=== PATIENT | female | born 1965 | race Caucasian/White ===

== ENCOUNTER 2018-03-02 11:14 | Emergency (ER) | payer MEDICAID ==
[~2018-03-02] VITALS: Ht 160 cm; Wt 52.0 kg
[2018-03-02 11:16] VITALS: BP 101/63
[2018-03-02] MEDS ORDERED: CLOT12CR TOP (14:12)
[2018-03-02] MEDS ORDERED: PIP1KIT21 TP (14:12)
[2018-03-02] MEDS ORDERED: PERM60CR19 TP (14:12)
== END 2018-03-02 14:31 | disposition home or self-care (01) ==
LOC: ER 11:15
DX: B85.0 Pediculosis due to Pediculus humanus capitis (principal); B35.3 Tinea pedis; F17.200 Nicotine dependence, unspecified, uncomplicated; Z88.0 Allergy status to penicillin; Z79.899 Other long term (current) drug therapy; Z59.0 Homelessness
CPT/HCPCS: 99282

== ENCOUNTER 2018-03-15 18:42 | Emergency (ER) | payer MEDICAID ==
[~2018-03-15] VITALS: Ht 160 cm; Wt 50.0 kg
[~2018-03-15 18:42] MED LIST: CLOT12CR TOP; IBUP-1986 PO; PERM60CR19 TP; PIP1KIT21 TP; TRAM50TA2 PO
[2018-03-15 19:12] LABS: BASOPHILS % (AUTO) 0.6 % (0-1); EOSINOPHILS # (AUTO) 0.3 X10'3 (0-0.9); EOSINOPHILS % (AUTO) 3.9 % (0-6); HEMATOCRIT 36.8 % (35.0-45.0); HEMOGLOBIN 12.5 g/dl (12.0-16.0); LYMPHOCYTES # (AUTO) 2.2 X10'3 (1.1-4.8); LYMPHOCYTES % (AUTO) 29.4 % (21-51); MEAN CORPUSCULAR HEMOGLOBIN 30.7 PG (27.0-31.0); MEAN CORPUSCULAR HGB CONC 33.8 % (33.0-36.5); MEAN CORPUSCULAR VOLUME 90.7 FL (78-98); MEAN PLATELET VOLUME 9.6 FL (7.4-10.4); MONOCYTES # (AUTO) 0.5 X10'3 (0-0.9); MONOCYTES % (AUTO) 7.4 % (2-12); NEUTROPHILS # (AUTO) 4.3 X10'3 (1.8-7.7); NEUTROPHILS % (AUTO) 58.7 % (42-75); PLATELET COUNT 160 X10'3 (140-440); RED BLOOD COUNT 4.06 X10'6 (4.20-5.60); RED CELL DISTRIBUTION WIDTH 13.9 % (11.5-14.5); WHITE BLOOD COUNT 7.3 X10'3 (4.5-11.0)
[2018-03-15 19:21] LABS: PROTHROMBIN TIME 10.4 SECONDS (9.0-12.0)
[2018-03-15 19:25] LABS: ALANINE AMINOTRANSFERASE 38 U/L (12-78); ALBUMIN 3.3 G/DL (3.4-5.0); ALBUMIN/GLOBULIN RATIO 1.1 (1.1-1.5); ALKALINE PHOSPHATASE 81 IU/L (46-116); ANION GAP 9 (8-16); ASPARTATE AMINO TRANSFERASE 29 U/L (10-37); BILIRUBIN,TOTAL 0.3 MG/DL (0.1-1.0); BLOOD UREA NITROGEN 12 MG/DL (7-18); BUN/CREATININE RATIO 9.6 (6.6-38.0); CALCIUM 8.5 MG/DL (8.5-10.1); CHLORIDE 98 MMOL/L (99-107); CREATININE 1.25 MG/DL (0.40-0.90); GLUCOSE 82 MG/DL (70-104); LIPASE 184 U/L (73-393); POTASSIUM 3.5 MMOL/L (3.5-5.1); SODIUM 136 MMOL/L (135-145); TOTAL CARBON DIOXIDE 28.9 MMOL/L (24-32); TOTAL PROTEIN 6.4 G/DL (6.4-8.2); eGFR 45 ML/MIN
[2018-03-15] MEDS ORDERED: normal saline 1000ML IV soln IVB ONE (19:45)
[2018-03-15] MEDS ORDERED: magnesium citrate 296ml oral solution PO ONE (20:55)
[2018-03-15 21:08] VITALS: BP 113/69
[2018-03-15] MEDS ORDERED: ondansetron 4mg rapidly disintigrating tab PO ONE (21:10)
[2018-03-18] MEDS ORDERED: ONDA4TAB6 PO (09:19)
== END 2018-03-15 21:17 | disposition home or self-care (01) ==
LOC: ER 18:43
DX: R10.84 Generalized abdominal pain (principal); R11.0 Nausea; Z90.49 Acquired absence of other specified parts of digestive tract; Z88.0 Allergy status to penicillin; Z79.899 Other long term (current) drug therapy; Z59.0 Homelessness
CPT/HCPCS: 36415; 74018; 80053; 83690; 85025; 85610; 99285

== ENCOUNTER 2018-04-04 21:13 | Emergency (ER) | payer MEDICAID ==
[~2018-04-04] VITALS: Ht 160 cm; Wt 52.5 kg
[~2018-04-04 21:13] MED LIST changes: +ONDA4TAB6 PO; -PERM60CR19 TP
[2018-04-04] MEDS ORDERED: benztropine 1 mg/ml 2ml ampule IV STA (21:48)
[2018-04-04] MEDS ORDERED: LORazepam 1 MG tablet PO ONE (21:50)
[2018-04-04] MEDS ORDERED: haloperidol lactate 5mg/ml inj IM ONE (21:50)
[2018-04-04 21:57] LABS: BASOPHILS % (AUTO) 0.5 % (0-1); EOSINOPHILS # (AUTO) 0.2 X10'3 (0-0.9); EOSINOPHILS % (AUTO) 2.2 % (0-6); HEMATOCRIT 37.9 % (35.0-45.0); HEMOGLOBIN 13.1 g/dl (12.0-16.0); LYMPHOCYTES # (AUTO) 2.3 X10'3 (1.1-4.8); LYMPHOCYTES % (AUTO) 28.2 % (21-51); MEAN CORPUSCULAR HEMOGLOBIN 30.6 PG (27.0-31.0); MEAN CORPUSCULAR HGB CONC 34.6 % (33.0-36.5); MEAN CORPUSCULAR VOLUME 88.4 FL (78-98); MEAN PLATELET VOLUME 8.8 FL (7.4-10.4); MONOCYTES # (AUTO) 0.7 X10'3 (0-0.9); MONOCYTES % (AUTO) 8.8 % (2-12); NEUTROPHILS # (AUTO) 4.8 X10'3 (1.8-7.7); NEUTROPHILS % (AUTO) 60.3 % (42-75); PLATELET COUNT 206 X10'3 (140-440); RED BLOOD COUNT 4.28 X10'6 (4.20-5.60); RED CELL DISTRIBUTION WIDTH 14.5 % (11.5-14.5)
[2018-04-04 22:11] LABS: ALANINE AMINOTRANSFERASE 39 U/L (12-78); ALBUMIN/GLOBULIN RATIO 1.2 (1.1-1.5); ALKALINE PHOSPHATASE 67 IU/L (46-116); ANION GAP 9 (8-16); ASPARTATE AMINO TRANSFERASE 37 U/L (10-37); BILIRUBIN,TOTAL 0.7 MG/DL (0.1-1.0); BLOOD UREA NITROGEN 10 MG/DL (7-18); BUN/CREATININE RATIO 10.9 (6.6-38.0); CHLORIDE 104 MMOL/L (99-107); CREATININE 0.92 MG/DL (0.40-0.90); GLUCOSE 92 MG/DL (70-104); POTASSIUM 3.7 MMOL/L (3.5-5.1); SODIUM 137 MMOL/L (135-145); TOTAL CARBON DIOXIDE 23.6 MMOL/L (24-32); TOTAL PROTEIN 7.3 G/DL (6.4-8.2); eGFR 64 ML/MIN
[2018-04-04 22:20] LABS: ETHANOL < 0.010 GM/DL (0.0-0.010)
[2018-04-04 22:24] LABS: ACETAMINOPHEN < 2.0 UG/ML (10-30)
[2018-04-05 11:06] LABS: CLARITY,URINE CLEAR (Clear); COLOR,URINE YELLOW (Yellow); GLUCOSE, URINE NEGATIVE (Neg); KETONES,URINE NEGATIVE (Neg); LEUKOCYTE ESTERASE ,URINE NEGATIVE (Neg); NITRITES, URINE NEGATIVE (Neg); OCCULT BLOOD,URINE NEGATIVE (Neg); PROTEIN,URINE NEGATIVE (Neg); UROBILINOGEN,URINE 0.2 E.U/dL (0.2-1.0)
[2018-04-05 11:08] LABS: URINE HCG NEGATIVE (NEG)
[2018-04-05 11:12] LABS: UA COLLECTION TYPE CLN CATCH MIDSTREAM
[2018-04-05 11:18] LABS: URINE AMPHETAMINE SCREEN NEGATIVE (Neg); URINE BARBITUATE SCREEN NEGATIVE (Neg); URINE BENZODIAZEPINES SCREEN NEGATIVE (Neg); URINE CANNABINOID SCREEN NEGATIVE (Neg); URINE COCAINE SCREEN NEGATIVE (Neg); URINE METHADONE SCREEN NEGATIVE (Neg); URINE OPIATE SCREEN NEGATIVE (Neg); URINE PHENCYCLIDINE SCREEN NEGATIVE (Neg)
[2018-04-05] MEDS ORDERED: TRAZADON PO (19:05)
[2018-04-05] MEDS: nicotine 7mg patch - 24hr TD SCH (19:46)
[2018-04-05] MEDS ORDERED: trihexyphenidyl HCL 5 MG tablet PO PRN (22:10)
[2018-04-06] MEDS: FLUoxetine 20mg capsule PO SCH (08:01)
[2018-04-06] MEDS: haloperidol 5mg tablet PO SCH ×3 (08:01→20:02)
[2018-04-06] MEDS: acetaminophen 325mg tablet PO PRN ×2 (08:02→18:52)
[2018-04-06] MEDS: nicotine 7mg patch - 24hr TD SCH (11:43)
[2018-04-06] MEDS: LORazepam 0.5 MG tablet PO PRN (11:43)
[2018-04-06] MEDS: traZODone 150mg tablet PO SCH (20:02)
[2018-04-07] MEDS: nicotine 7mg patch - 24hr TD SCH (08:00)
[2018-04-07] MEDS: haloperidol 5mg tablet PO SCH ×3 (08:00→20:10)
[2018-04-07] MEDS: FLUoxetine 20mg capsule PO SCH (13:45)
[2018-04-07] MEDS: LORazepam 0.5 MG tablet PO PRN (15:50)
[2018-04-07] MEDS: acetaminophen 325mg tablet PO PRN (15:51)
[2018-04-07] MEDS: traZODone 150mg tablet PO SCH (20:10)
[2018-04-08] MEDS: haloperidol 5mg tablet PO SCH ×3 (12:59→20:19)
[2018-04-08] MEDS: LORazepam 0.5 MG tablet PO PRN ×2 (12:59→21:18)
[2018-04-08] MEDS: FLUoxetine 20mg capsule PO SCH (12:59)
[2018-04-08] MEDS: acetaminophen 325mg tablet PO PRN ×2 (13:00→19:08)
[2018-04-08] MEDS: nicotine 7mg patch - 24hr TD SCH (13:16)
[2018-04-08] MEDS: traZODone 150mg tablet PO SCH (20:19)
[2018-04-09] MEDS: FLUoxetine 20mg capsule PO SCH (12:22)
[2018-04-09] MEDS: haloperidol 5mg tablet PO SCH ×3 (12:22→20:35)
[2018-04-09] MEDS: nicotine 7mg patch - 24hr TD SCH (12:23)
[2018-04-09] MEDS: LORazepam 0.5 MG tablet PO PRN ×2 (12:25→20:35)
[2018-04-09] MEDS: acetaminophen 325mg tablet PO PRN (18:06)
[2018-04-09] MEDS: traZODone 150mg tablet PO SCH (20:35)
[2018-04-10] MEDS: FLUoxetine 20mg capsule PO SCH (08:37)
[2018-04-10] MEDS: haloperidol 5mg tablet PO SCH ×3 (08:37→20:12)
[2018-04-10] MEDS: nicotine 7mg patch - 24hr TD SCH (08:40)
[2018-04-10] MEDS: LORazepam 0.5 MG tablet PO PRN ×3 (08:51→21:27)
[2018-04-10] MEDS: acetaminophen 325mg tablet PO PRN (11:41)
[2018-04-10] MEDS: traZODone 150mg tablet PO SCH (20:12)
[2018-04-11 05:30] VITALS: BP 95/58
[2018-04-11] MEDS: FLUoxetine 20mg capsule PO SCH (08:00)
[2018-04-11] MEDS: haloperidol 5mg tablet PO SCH (08:00)
== END 2018-04-11 11:20 | disposition home or self-care (01) ==
LOC: ER 21:14
DX: F32.9 Major depressive disorder, single episode, unspecified (principal); F41.9 Anxiety disorder, unspecified; Z86.19 Personal history of other infectious and parasitic diseases; Z90.49 Acquired absence of other specified parts of digestive tract; Z59.0 Homelessness; Z88.0 Allergy status to penicillin; Z79.899 Other long term (current) drug therapy
CPT/HCPCS: 36415; 80053; 80305; 80320; 80329; 81003; 81025; 84443; 85025; 96372; 96374; 99285; J0515; J1630

== ENCOUNTER 2018-04-21 01:57 | Emergency (ER) | payer MEDICAID ==
[~2018-04-21] VITALS: Ht 160 cm; Wt 60.0 kg
[~2018-04-21 01:57] MED LIST changes: -CLOT12CR TOP; -IBUP-1986 PO; -ONDA4TAB6 PO; -PIP1KIT21 TP; -TRAM50TA2 PO; +TRAZADON PO
[2018-04-21 01:58] VITALS: BP 140/86
[2018-04-21] MEDS ORDERED: SULF1TAB49 PO (02:23)
[2018-04-21] MEDS ORDERED: sulfamethoxazole/trimethoprim DS (800/160mg) tablet PO ONE (02:25)
== END 2018-04-21 02:41 | disposition home or self-care (01) ==
LOC: ER 01:57
DX: K08.89 Other specified disorders of teeth and supporting structures (principal); Z90.49 Acquired absence of other specified parts of digestive tract; Z88.0 Allergy status to penicillin; Z79.899 Other long term (current) drug therapy; Z59.0 Homelessness
CPT/HCPCS: 99283

== ENCOUNTER 2018-06-26 20:02 | Emergency (ER) | payer MEDICAID ==
[~2018-06-26] VITALS: Ht 160 cm; Wt 54.4 kg
[~2018-06-26 20:02] MED LIST changes: +CLIN300C85 PO; +DOXY100C43 PO; +HYDR-4353 PO; +SULFACETAMIDE EACHEYE
[2018-06-26 20:19] VITALS: BP 118/81
[2018-06-26] MEDS ORDERED: diphenhydrAMINE 25mg capsule PO ONE (21:10)
== END 2018-06-26 21:26 | disposition home or self-care (01) ==
LOC: ER 20:03
DX: H01.005 Unspecified blepharitis left lower eyelid (principal); H01.002 Unspecified blepharitis right lower eyelid; R09.81 Nasal congestion; R05 Cough; H92.03 Otalgia, bilateral; Z88.0 Allergy status to penicillin; G89.29 Other chronic pain; Z90.49 Acquired absence of other specified parts of digestive tract; Z59.0 Homelessness
CPT/HCPCS: 99283; Q0163

== ENCOUNTER 2018-10-08 12:55 | Outpatient (CLI) | payer MEDICAID ==
[~2018-10-08 12:55] MED LIST changes: -DOXY100C43 PO; -HYDR-4353 PO
== END 2018-10-08 23:59 | disposition home or self-care (01) ==
LOC: CARD DIAG 12:55
PROVIDERS: ATTEND Internal Medicine Critical Care Medicine
DX: R06.02 Shortness of breath (principal); R06.00 Dyspnea, unspecified; F17.200 Nicotine dependence, unspecified, uncomplicated
CPT/HCPCS: 93306

== ENCOUNTER 2020-05-31 12:33 | Emergency (ER) | payer BC, MEDICAID ==
[~2020-05-31] VITALS: Ht 160 cm; Wt 48.4 kg
[~2020-05-31 12:33] MED LIST changes: +CLIN-97 PO; -CLIN300C85 PO
[2020-05-31] MEDS ORDERED: normal saline 1000ML IV soln IV ONE (12:50)
[2020-05-31 14:38] LABS: BASOPHILS # (AUTO) 0.1 X10'3 (0-0.2); EOSINOPHILS # (AUTO) 0.1 X10'3 (0-0.9); EOSINOPHILS % (AUTO) 0.8 % (0-6); HEMATOCRIT 40.8 % (35.0-45.0); HEMOGLOBIN 14.2 g/dl (12.0-16.0); LYMPHOCYTES % (AUTO) 11.7 % (21-51); MEAN CORPUSCULAR HEMOGLOBIN 30.9 PG (27.0-31.0); MEAN CORPUSCULAR HGB CONC 34.9 g/dL (33.0-36.5); MEAN CORPUSCULAR VOLUME 88.7 FL (78-98); MEAN PLATELET VOLUME 9.7 FL (7.4-10.4); MONOCYTES # (AUTO) 0.5 X10'3 (0-0.9); NEUTROPHILS % (AUTO) 80.5 % (42-75); PLATELET COUNT 177 X10'3 (140-440); RED CELL DISTRIBUTION WIDTH 14.3 % (11.5-14.5); WHITE BLOOD COUNT 8.7 X10'3 (4.5-11.0)
[2020-05-31 14:49] LABS: D-DIMER 0.22 MG/L FEU (0-0.50)
[2020-05-31 14:53] LABS: ALANINE AMINOTRANSFERASE 43 U/L (12-78); ALBUMIN 3.8 G/DL (3.4-5.0); ALBUMIN/GLOBULIN RATIO 1.2 (1.1-1.5); ALKALINE PHOSPHATASE 99 IU/L (46-116); ANION GAP 8 (8-16); ASPARTATE AMINO TRANSFERASE 34 U/L (10-37); BLOOD UREA NITROGEN 16 MG/DL (7-18); CALCIUM 8.6 MG/DL (8.5-10.1); CHLORIDE 103 MMOL/L (99-107); CREATININE 0.89 MG/DL (0.40-0.90); GLUCOSE 93 MG/DL (70-104); LIPASE 253 U/L (73-393); SODIUM 136 MMOL/L (135-145); TOTAL CARBON DIOXIDE 25.2 MMOL/L (24-32); eGFR 66 ML/MIN
[2020-05-31 14:58] LABS: POTASSIUM 4.3 MMOL/L (3.5-5.1)
[2020-05-31] MEDS ORDERED: metoclopramide 5 mg/ml inj IV ONE (15:00)
[2020-05-31] MEDS ORDERED: HYDROcodone/acetaminophen 10/325mg tab PO ONE (15:00)
[2020-05-31] MEDS ORDERED: ketorolac trometh. 30mg/ml inj. IV ONE (15:00)
[2020-05-31 15:18] VITALS: BP 115/76
[2020-05-31 15:35] LABS: CLARITY,URINE SLIGHTLY CLOUDY (Clear); COLOR,URINE YELLOW (Yellow); GLUCOSE, URINE NEGATIVE (Neg); KETONES,URINE TRACE mg/dl (Neg); LEUKOCYTE ESTERASE ,URINE TRACE (Neg); NITRITES, URINE NEGATIVE (Neg); OCCULT BLOOD,URINE NEGATIVE (Neg); PH,URINE 5.5 (4.8-8.0); PROTEIN,URINE NEGATIVE (Neg); UROBILINOGEN,URINE 0.2 E.U/dL (0.2-1.0)
[2020-05-31 15:47] LABS: UA COLLECTION TYPE URINAL
[2020-05-31 15:48] LABS: FINE GRANULAR CAST 0-3 /LPF (NEGATIVE); MUCUS STRANDS MANY /LPF (Neg); SQUAMOUS EPITHELIAL CELL,UR MANY /LPF (FEW)
[2020-05-31 15:51] LABS: BACTERIA,URINE 2+ /HPF (Neg); RBC,URINE 0-2 /HPF (0-2); TRANSITIONAL EPI CELLS,URINE FEW /HPF; WBC,URINE 0-4 /HPF (0-4)
[2020-05-31] MEDS ORDERED: DICY10CA88 PO (16:42)
== END 2020-05-31 16:59 | disposition home or self-care (01) ==
LOC: ER 12:34
DX: R19.7 Diarrhea, unspecified (principal); R10.84 Generalized abdominal pain; R06.02 Shortness of breath; R42 Dizziness and giddiness; Z20.828 Contact with and (suspected) exposure to other viral communicable diseases; G89.29 Other chronic pain; F41.9 Anxiety disorder, unspecified; F32.9 Major depressive disorder, single episode, unspecified; Z86.19 Personal history of other infectious and parasitic diseases; Z90.49 Acquired absence of other specified parts of digestive tract; Z59.0 Homelessness; Z88.0 Allergy status to penicillin; Z79.2 Long term (current) use of antibiotics; Z79.899 Other long term (current) drug therapy
CPT/HCPCS: 36415; 71045; 80053; 81001; 83605; 83690; 84145; 85025; 85379; 87040; 87635; 93005; 96361; 96374; 96375; 99285; J1885; J2765; J7030

== ENCOUNTER 2020-09-23 17:49 | Emergency (ER) | payer BC ==
[~2020-09-23] VITALS: Ht 162.6 cm; Wt 75.0 kg
[~2020-09-23 17:49] MED LIST changes: +DICY10CA88 PO
[2020-09-23 18:52] LABS: BASOPHILS % (AUTO) 0.9 % (0-1); EOSINOPHILS # (AUTO) 0.1 X10'3 (0-0.9); EOSINOPHILS % (AUTO) 1.2 % (0-6); HEMATOCRIT 42.7 % (35.0-45.0); HEMOGLOBIN 14.6 g/dl (12.0-16.0); LYMPHOCYTES # (AUTO) 1.1 X10'3 (1.1-4.8); LYMPHOCYTES % (AUTO) 22.7 % (21-51); MEAN CORPUSCULAR HGB CONC 34.1 g/dL (33.0-36.5); MEAN PLATELET VOLUME 8.4 FL (7.4-10.4); MONOCYTES # (AUTO) 0.5 X10'3 (0-0.9); MONOCYTES % (AUTO) 10.2 % (2-12); PLATELET COUNT 118 X10'3 (140-440); RED BLOOD COUNT 4.54 X10'6 (4.20-5.60); RED CELL DISTRIBUTION WIDTH 15.9 % (11.5-14.5); WHITE BLOOD COUNT 4.7 X10'3 (4.5-11.0)
[2020-09-23 19:00] LABS: ALANINE AMINOTRANSFERASE 318 U/L (12-78); ALBUMIN 3.9 G/DL (3.4-5.0); ALBUMIN/GLOBULIN RATIO 1.1 (1.1-1.5); ALKALINE PHOSPHATASE 103 IU/L (46-116); ANION GAP 13 (8-16); ASPARTATE AMINO TRANSFERASE 675 U/L (10-37); BILIRUBIN,TOTAL 0.3 MG/DL (0.1-1.0); BLOOD UREA NITROGEN 10 MG/DL (7-18); BUN/CREATININE RATIO 11.2 (6.6-38.0); CALCIUM 8.2 MG/DL (8.5-10.1); CHLORIDE 102 MMOL/L (99-107); CREATININE 0.89 MG/DL (0.40-0.90); GLUCOSE 80 MG/DL (70-104); POTASSIUM 3.8 MMOL/L (3.5-5.1); SODIUM 141 MMOL/L (135-145); TOTAL CARBON DIOXIDE 26.2 MMOL/L (24-32); TOTAL PROTEIN 7.4 G/DL (6.4-8.2); eGFR 66 ML/MIN
[2020-09-23 19:02] LABS: ETHANOL 0.311 GM/DL (0.0-0.010)
[2020-09-23 19:36] LABS: URINE HCG NEGATIVE (NEG)
[2020-09-23 19:47] LABS: CLARITY,URINE CLEAR (Clear); COLOR,URINE YELLOW (Yellow); GLUCOSE, URINE NEGATIVE (Neg); KETONES,URINE NEGATIVE (Neg); LEUKOCYTE ESTERASE ,URINE TRACE (Neg); NITRITES, URINE NEGATIVE (Neg); OCCULT BLOOD,URINE NEGATIVE (Neg); PH,URINE 5.5 (4.8-8.0); PROTEIN,URINE NEGATIVE (Neg); UROBILINOGEN,URINE 0.2 E.U/dL (0.2-1.0)
[2020-09-23 19:49] LABS: UA COLLECTION TYPE CLN CATCH MIDSTREAM
[2020-09-23 19:55] LABS: URINE AMPHETAMINE SCREEN NEGATIVE (Neg); URINE BARBITUATE SCREEN POSITIVE (Neg); URINE BENZODIAZEPINES SCREEN NEGATIVE (Neg); URINE CANNABINOID SCREEN NEGATIVE (Neg); URINE COCAINE SCREEN NEGATIVE (Neg); URINE METHADONE SCREEN NEGATIVE (Neg); URINE OPIATE SCREEN NEGATIVE (Neg); URINE PHENCYCLIDINE SCREEN NEGATIVE (Neg)
[2020-09-23 20:11] LABS: BACTERIA,URINE FEW /HPF (Neg); RBC,URINE NONE SEEN /HPF (0-2); WBC,URINE 0-4 /HPF (0-4)
[2020-09-23 20:12] LABS: MUCUS STRANDS FEW /LPF (Neg); SQUAMOUS EPITHELIAL CELL,UR FEW /LPF (FEW)
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
[2020-09-23] MEDS ORDERED: ondansetron 4mg rapidly disintigrating tab PO ONE (20:40)
--- NOTE | 2020-09-23 20:58 | NUR ---
Pt medicated with zofran odt for nausea.
--- NOTE | 2020-09-23 21:55 | NUR ---
PACKET FAXED TO [facility]
[2020-09-24] MEDS ORDERED: LORazepam 1 MG tablet PO ONE (04:10)
[2020-09-24 06:01] VITALS: BP 159/99
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
--- NOTE | 2020-09-24 07:30 | NUR ---
PT IS ASKING WHEN [facility] WILL SEE HER
--- NOTE | 2020-09-24 08:30 | NUR ---
PT IS SLEEPING
--- NOTE | 2020-09-24 09:17 | NUR ---
PT IS SLEEPING
== END 2020-09-24 10:52 | disposition home or self-care (01) ==
LOC: ER 17:50
DX: F10.929 Alcohol use, unspecified with intoxication, unspecified (principal); R45.851 Suicidal ideations; F32.9 Major depressive disorder, single episode, unspecified; J40 Bronchitis, not specified as acute or chronic; G89.29 Other chronic pain; F41.9 Anxiety disorder, unspecified; Z59.0 Homelessness; Z90.49 Acquired absence of other specified parts of digestive tract; Z88.0 Allergy status to penicillin; Z79.2 Long term (current) use of antibiotics; Z79.899 Other long term (current) drug therapy
CPT/HCPCS: 36415; 80053; 80305; 80320; 81001; 81025; 85025; 99285

== ENCOUNTER 2020-09-28 18:33 | Emergency (ER) | payer BC ==
[~2020-09-28] VITALS: Ht 160 cm; Wt 61.4 kg
[2020-09-28 20:02] LABS: URINE AMPHETAMINE SCREEN POSITIVE (Neg); URINE BARBITUATE SCREEN POSITIVE (Neg); URINE BENZODIAZEPINES SCREEN NEGATIVE (Neg); URINE CANNABINOID SCREEN NEGATIVE (Neg); URINE COCAINE SCREEN NEGATIVE (Neg); URINE METHADONE SCREEN NEGATIVE (Neg); URINE OPIATE SCREEN NEGATIVE (Neg); URINE PHENCYCLIDINE SCREEN NEGATIVE (Neg)
[2020-09-28 20:36] LABS: ALANINE AMINOTRANSFERASE 177 U/L (12-78); ALBUMIN 4.3 G/DL (3.4-5.0); ALBUMIN/GLOBULIN RATIO 1.3 (1.1-1.5); ALKALINE PHOSPHATASE 95 IU/L (46-116); ANION GAP 9 (8-16); ASPARTATE AMINO TRANSFERASE 189 U/L (10-37); BILIRUBIN,TOTAL 0.8 MG/DL (0.1-1.0); BLOOD UREA NITROGEN 12 MG/DL (7-18); BUN/CREATININE RATIO 9.4 (6.6-38.0); CHLORIDE 95 MMOL/L (99-107); CREATININE 1.28 MG/DL (0.40-0.90); ETHANOL < 0.010 GM/DL (0.0-0.010); GLUCOSE 141 MG/DL (70-104); POTASSIUM 3.3 MMOL/L (3.5-5.1); SODIUM 132 MMOL/L (135-145); TOTAL CARBON DIOXIDE 27.9 MMOL/L (24-32); TOTAL PROTEIN 7.6 G/DL (6.4-8.2); eGFR 43 ML/MIN
[2020-09-28 20:37] LABS: BASOPHILS % (AUTO) 0.4 % (0-1); EOSINOPHILS % (AUTO) 0.2 % (0-6); HEMATOCRIT 38.1 % (35.0-45.0); HEMOGLOBIN 13.3 g/dl (12.0-16.0); LYMPHOCYTES # (AUTO) 0.6 X10'3 (1.1-4.8); LYMPHOCYTES % (AUTO) 8.6 % (21-51); MEAN CORPUSCULAR HEMOGLOBIN 32.5 PG (27.0-31.0); MEAN CORPUSCULAR VOLUME 92.8 FL (78-98); MEAN PLATELET VOLUME 8.7 FL (7.4-10.4); MONOCYTES # (AUTO) 0.7 X10'3 (0-0.9); MONOCYTES % (AUTO) 9.6 % (2-12); NEUTROPHILS # (AUTO) 5.8 X10'3 (1.8-7.7); NEUTROPHILS % (AUTO) 81.2 % (42-75); PLATELET COUNT 138 X10'3 (140-440); RED CELL DISTRIBUTION WIDTH 15.5 % (11.5-14.5); WHITE BLOOD COUNT 7.2 X10'3 (4.5-11.0)
[2020-09-28 22:19] VITALS: BP 142/97
== END 2020-09-28 22:21 | disposition home or self-care (01) ==
LOC: ER 18:34
DX: R56.9 Unspecified convulsions (principal); R32 Unspecified urinary incontinence; F10.239 Alcohol dependence with withdrawal, unspecified; G89.29 Other chronic pain; F41.9 Anxiety disorder, unspecified; F32.9 Major depressive disorder, single episode, unspecified; F15.90 Other stimulant use, unspecified, uncomplicated; Z86.19 Personal history of other infectious and parasitic diseases; Z90.49 Acquired absence of other specified parts of digestive tract; Z72.89 Other problems related to lifestyle; Z59.0 Homelessness; Z88.0 Allergy status to penicillin; Z79.2 Long term (current) use of antibiotics; Z79.899 Other long term (current) drug therapy; Y90.0 Blood alcohol level of less than 20 mg/100 ml
CPT/HCPCS: 36415; 70450; 80053; 80305; 80320; 85025; 93005; 99285

== ENCOUNTER 2021-02-11 08:48 | Emergency (ER) | payer BC, MEDICAID ==
[~2021-02-11] VITALS: Ht 160 cm; Wt 56.8 kg
[2021-02-11] MEDS ORDERED: HYDR28CR14 TOP (09:39)
[2021-02-11] MEDS ORDERED: CEPH250T PO (09:39)
[2021-02-11] MEDS ORDERED: normal saline 1000ML IV soln IVB ONE ×2 (09:55→11:00)
[2021-02-11 10:16] LABS: BASOPHILS % (AUTO) 0.3 % (0-1); EOSINOPHILS % (AUTO) 0.4 % (0-6); HEMATOCRIT 36.7 % (35.0-45.0); HEMOGLOBIN 12.7 g/dl (12.0-16.0); LYMPHOCYTES # (AUTO) 0.8 X10'3 (1.1-4.8); MEAN CORPUSCULAR HEMOGLOBIN 30.3 PG (27.0-31.0); MEAN CORPUSCULAR HGB CONC 34.7 g/dL (33.0-36.5); MEAN CORPUSCULAR VOLUME 87.2 FL (78-98); MEAN PLATELET VOLUME 9.2 FL (7.4-10.4); MONOCYTES # (AUTO) 0.6 X10'3 (0-0.9); MONOCYTES % (AUTO) 6.3 % (2-12); NEUTROPHILS # (AUTO) 8.3 X10'3 (1.8-7.7); PLATELET COUNT 172 X10'3 (140-440); WHITE BLOOD COUNT 9.8 X10'3 (4.5-11.0)
[2021-02-11 10:30] LABS: ALANINE AMINOTRANSFERASE 18 U/L (12-78); ALBUMIN 3.9 G/DL (3.4-5.0); ALBUMIN/GLOBULIN RATIO 1.4 (1.1-1.5); ALKALINE PHOSPHATASE 71 IU/L (46-116); ANION GAP 6 (8-16); ASPARTATE AMINO TRANSFERASE 30 U/L (10-37); BILIRUBIN,TOTAL 0.6 MG/DL (0.1-1.0); BLOOD UREA NITROGEN 8 MG/DL (7-18); BUN/CREATININE RATIO 8.9 (6.6-38.0); CALCIUM 8.5 MG/DL (8.5-10.1); CHLORIDE 99 MMOL/L (99-107); GLUCOSE 100 MG/DL (70-104); SODIUM 129 MMOL/L (135-145); TOTAL CARBON DIOXIDE 23.9 MMOL/L (24-32); TOTAL PROTEIN 6.7 G/DL (6.4-8.2); eGFR 65 ML/MIN
[2021-02-11 10:33] LABS: ETHANOL < 0.010 GM/DL (0.0-0.010)
[2021-02-11 10:59] LABS: CLARITY,URINE CLEAR (Clear); COLOR,URINE STRAW (Yellow); GLUCOSE, URINE NEGATIVE (Neg); KETONES,URINE NEGATIVE (Neg); LEUKOCYTE ESTERASE ,URINE NEGATIVE (Neg); NITRITES, URINE NEGATIVE (Neg); OCCULT BLOOD,URINE NEGATIVE (Neg); PROTEIN,URINE NEGATIVE (Neg); UA COLLECTION TYPE CLN CATCH MIDSTREAM; UROBILINOGEN,URINE 0.2 E.U/dL (0.2-1.0)
[2021-02-11 11:02] LABS: URINE AMPHETAMINE SCREEN NEGATIVE (Neg); URINE BARBITUATE SCREEN NEGATIVE (Neg); URINE BENZODIAZEPINES SCREEN NEGATIVE (Neg); URINE CANNABINOID SCREEN NEGATIVE (Neg); URINE COCAINE SCREEN NEGATIVE (Neg); URINE METHADONE SCREEN NEGATIVE (Neg); URINE OPIATE SCREEN NEGATIVE (Neg); URINE PHENCYCLIDINE SCREEN NEGATIVE (Neg)
[2021-02-11 11:37] VITALS: BP 121/86
--- NOTE | 2021-02-11 11:38 | NUR ---
PATIENT DEPARTED AMBULATORY TO THE LOBBY, AWAITING [facility] FOR RIDE [facility].
== END 2021-02-11 11:37 | disposition home or self-care (01) ==
LOC: ER 08:50
DX: E86.0 Dehydration (principal); E87.1 Hypo-osmolality and hyponatremia; R55 Syncope and collapse; R42 Dizziness and giddiness; F41.9 Anxiety disorder, unspecified; F32.9 Major depressive disorder, single episode, unspecified; F15.90 Other stimulant use, unspecified, uncomplicated; Z86.69 Personal history of other diseases of the nervous system and sense organs; Z86.19 Personal history of other infectious and parasitic diseases; Z90.49 Acquired absence of other specified parts of digestive tract; Z72.89 Other problems related to lifestyle; Z59.0 Homelessness; Z88.0 Allergy status to penicillin; Z79.2 Long term (current) use of antibiotics; Z79.899 Other long term (current) drug therapy
CPT/HCPCS: 36415; 71045; 80053; 80305; 80320; 81003; 82948; 85025; 93005; 99285; J7030

== ENCOUNTER 2021-03-07 07:59 | Emergency (ER) | payer MEDICAID ==
[~2021-03-07] VITALS: Ht 160 cm; Wt 59.1 kg
[2021-03-07] MEDS ORDERED: normal saline 1000ml 1,000 ML IV ONE ×2 (10:50→12:20)
[2021-03-07] MEDS ORDERED: ondansetron 4mg rapidly disintigrating tab PO ONE (10:55)
[2021-03-07 11:12] LABS: BASOPHILS % (AUTO) 0.3 % (0-1); EOSINOPHILS % (AUTO) 0.2 % (0-6); HEMATOCRIT 35.2 % (35.0-45.0); HEMOGLOBIN 12.6 g/dl (12.0-16.0); LYMPHOCYTES # (AUTO) 0.4 X10'3 (1.1-4.8); LYMPHOCYTES % (AUTO) 7.3 % (21-51); MEAN CORPUSCULAR HEMOGLOBIN 31.1 PG (27.0-31.0); MEAN CORPUSCULAR HGB CONC 35.7 g/dL (33.0-36.5); MEAN CORPUSCULAR VOLUME 87.1 FL (78-98); MEAN PLATELET VOLUME 8.9 FL (7.4-10.4); MONOCYTES # (AUTO) 0.4 X10'3 (0-0.9); MONOCYTES % (AUTO) 6.2 % (2-12); PLATELET COUNT 177 X10'3 (140-440); RED BLOOD COUNT 4.04 X10'6 (4.20-5.60); RED CELL DISTRIBUTION WIDTH 13.1 % (11.5-14.5); WHITE BLOOD COUNT 5.8 X10'3 (4.5-11.0)
[2021-03-07 11:29] LABS: ALANINE AMINOTRANSFERASE 16 U/L (12-78); ALBUMIN 3.5 G/DL (3.4-5.0); ALBUMIN/GLOBULIN RATIO 1.3 (1.1-1.5); ALKALINE PHOSPHATASE 54 IU/L (46-116); ANION GAP 11 (8-16); ASPARTATE AMINO TRANSFERASE 15 U/L (10-37); BILIRUBIN,TOTAL 0.4 MG/DL (0.1-1.0); BLOOD UREA NITROGEN 12 MG/DL (7-18); BUN/CREATININE RATIO 14.3 (6.6-38.0); CALCIUM 7.4 MG/DL (8.5-10.1); CHLORIDE 107 MMOL/L (99-107); CREATININE 0.84 MG/DL (0.40-0.90); ETHANOL < 0.010 GM/DL (0.0-0.010); GLUCOSE 102 MG/DL (70-104); LIPASE 119 U/L (73-393); POTASSIUM 3.5 MMOL/L (3.5-5.1); SODIUM 140 MMOL/L (135-145); TOTAL CARBON DIOXIDE 21.6 MMOL/L (24-32); TOTAL PROTEIN 6.2 G/DL (6.4-8.2); eGFR 70 ML/MIN
[2021-03-07 11:37] LABS: CLARITY,URINE CLEAR (Clear); COLOR,URINE STRAW (Yellow); GLUCOSE, URINE NEGATIVE (Neg); KETONES,URINE NEGATIVE (Neg); LEUKOCYTE ESTERASE ,URINE NEGATIVE (Neg); NITRITES, URINE NEGATIVE (Neg); OCCULT BLOOD,URINE NEGATIVE (Neg); PROTEIN,URINE NEGATIVE (Neg); UROBILINOGEN,URINE 0.2 E.U/dL (0.2-1.0)
[2021-03-07 11:39] LABS: UA COLLECTION TYPE VOIDED; URINE AMPHETAMINE SCREEN NEGATIVE (Neg); URINE BARBITUATE SCREEN NEGATIVE (Neg); URINE BENZODIAZEPINES SCREEN NEGATIVE (Neg); URINE CANNABINOID SCREEN NEGATIVE (Neg); URINE COCAINE SCREEN NEGATIVE (Neg); URINE METHADONE SCREEN NEGATIVE (Neg); URINE OPIATE SCREEN NEGATIVE (Neg); URINE PHENCYCLIDINE SCREEN NEGATIVE (Neg)
[2021-03-07] MEDS ORDERED: pantoprazole 40 MG vial IV ONE (11:55)
[2021-03-07 12:55] LABS: D-DIMER 1.66 MG/L FEU (0-0.50)
[2021-03-07] MEDS ORDERED: iohexol 350MG/ML 100ml bottle IV ONE (13:12)
[2021-03-07] MEDS ORDERED: LORazepam 2 mg/ml vial IV ONE (13:40)
[2021-03-07] MEDS ORDERED: ONDA4TAB6 PO (14:18)
[2021-03-07 15:01] VITALS: BP 129/82
== END 2021-03-07 15:03 | disposition home or self-care (01) ==
LOC: ER 08:00
DX: A08.4 Viral intestinal infection, unspecified (principal); Z20.822 Contact with and (suspected) exposure to COVID-19; E86.0 Dehydration; R05 Cough; R19.7 Diarrhea, unspecified; R10.84 Generalized abdominal pain; G89.29 Other chronic pain; F41.9 Anxiety disorder, unspecified; F32.9 Major depressive disorder, single episode, unspecified; F15.90 Other stimulant use, unspecified, uncomplicated; Z86.69 Personal history of other diseases of the nervous system and sense organs; Z86.19 Personal history of other infectious and parasitic diseases; Z90.49 Acquired absence of other specified parts of digestive tract; Z72.89 Other problems related to lifestyle; Z59.0 Homelessness; Z88.0 Allergy status to penicillin; Z79.2 Long term (current) use of antibiotics; Z79.899 Other long term (current) drug therapy
CPT/HCPCS: 36415; 71275; 74176; 80053; 80305; 80320; 81003; 83690; 85025; 85379; 87635; 96361; 96374; 96375; 99285; C9113; C9803; J2060; J7030; Q9967

== ENCOUNTER 2024-04-28 10:15 | Outpatient (CLI) | payer MEDICAID ==
[~2024-04-28 10:15] MED LIST changes: +ONDA4TAB6 PO
== END 2024-04-28 23:59 | disposition home or self-care (01) ==
LOC: RAD 10:15
PROVIDERS: ATTEND Neuromusculoskeletal Medicine & OMM
DX: R41.82 Altered mental status, unspecified (principal)
CPT/HCPCS: 95816